=== PATIENT | female | born 1940 | race Caucasian/White ===

== ENCOUNTER 2021-03-09 03:19 | Emergency (ER) | payer OTHER, BC ==
[~2021-03-09] VITALS: Ht 149.9 cm; Wt 97.5 kg
[2021-03-09 03:25] VITALS: BP 172/70
== END 2021-03-09 05:00 | disposition home or self-care (01) ==
LOC: ER 03:19
DX: S01.81XA Laceration without foreign body of other part of head, initial encounter (principal); E78.00 Pure hypercholesterolemia, unspecified; E03.9 Hypothyroidism, unspecified; Z98.890 Other specified postprocedural states; Z88.0 Allergy status to penicillin; Z88.2 Allergy status to sulfonamides; W01.10XA Fall on same level from slipping, tripping and stumbling with subsequent striking against unspecified object, initial encounter; Y93.89 Activity, other specified; Y92.89 Other specified places as the place of occurrence of the external cause; Y99.8 Other external cause status

== ENCOUNTER 2021-04-05 12:31 | Emergency (ER) | payer OTHER, BC ==
[~2021-04-05] VITALS: Ht 152.4 cm; Wt 95.3 kg
[2021-04-05 13:16] LABS: HEMATOCRIT 38.7 % (37.0-47.0); MCH 30.4 pg (26.0-34.0)
[2021-04-05 13:18] LABS: HEMOGLOBIN 12.7 gm/dL (12.0-15.0); MCHC 32.8 g/dL (28.0-37.0); MCV 92.7 fL (80.0-100.0); RBC 4.18 mil/uL (4.20-5.00); RDW 16.1 % (10.5-14.5); WBC 12.1 thou/uL (4.0-11.0)
[2021-04-05 13:36] LABS: CALCIUM 8.2 mg/dL (8.5-10.1); CREATININE 1.3 mg/dL (0.6-1.0); POTASSIUM 4.3 mmol/L (3.5-5.1)
[2021-04-05 13:41] LABS: ALBUMIN 3.5 g/dL (3.4-5.0); TOTAL BILIRUBIN 0.2 mg/dL (0.2-1.0); TOTAL PROTEIN 7.3 g/dL (6.4-8.2)
[2021-04-05 14:55] LABS: ABSOLUTE NEUTROPHILS 9.8 thou/uL (1.4-8.2); ATYPICAL LYMPHS 1 %
[2021-04-05 14:57] LABS: PLATELET ESTIMATE NORMAL
[2021-04-05 14:58] LABS: PLATELET COUNT 291 thou/uL (150-400)
[2021-04-05] MEDS ORDERED: DOXYCYCLINE 10100 MG PO (15:08)
[2021-04-05 16:07] VITALS: BP 149/75
== END 2021-04-05 16:07 | disposition home or self-care (01) ==
LOC: ER 12:31
PROVIDERS: Emergency Medicine
DX: L03.116 Cellulitis of left lower limb (principal); M79.605 Pain in left leg; E78.00 Pure hypercholesterolemia, unspecified; E03.9 Hypothyroidism, unspecified; Z98.890 Other specified postprocedural states; Z88.0 Allergy status to penicillin; Z88.2 Allergy status to sulfonamides